=== PATIENT | female | born 1955 | race Caucasian/White ===

== ENCOUNTER 2017-06-20 10:02 | Outpatient (CLI) | payer OTHER | END 2017-06-20 11:00 | disposition home or self-care (01) | LOC: NUCLEAR 10:02 | DX: M81.0 Age-related osteoporosis without current pathological fracture (principal); I10 Essential (primary) hypertension; E78.9 Disorder of lipoprotein metabolism, unspecified; E55.9 Vitamin D deficiency, unspecified; I73.9 Peripheral vascular disease, unspecified ==

== ENCOUNTER 2021-03-10 13:26 | Outpatient (CLI) | payer OTHER | END 2021-03-10 13:32 | disposition home or self-care (01) | LOC: NUCLEAR 13:26 | PROVIDERS: ATTEND Internal Medicine | DX: M81.0 Age-related osteoporosis without current pathological fracture (principal) ==

== ENCOUNTER 2024-07-16 09:37 | Outpatient (CLI) | payer OTHER | END 2024-07-16 09:40 | disposition home or self-care (01) | LOC: NUCLEAR 09:37 | PROVIDERS: ATTEND Internal Medicine | DX: Z13.820 Encounter for screening for osteoporosis (principal); M81.0 Age-related osteoporosis without current pathological fracture; I73.9 Peripheral vascular disease, unspecified; I10 Essential (primary) hypertension ==